=== PATIENT | male | born 1970 | race Caucasian/White ===

== ENCOUNTER → 2018-10-21 | Outpatient (CLI) | payer SELFPAY ==
--- NOTE | 2018-10-21 14:23 | Diagnostic Imaging Report ---
PROCEDURE: MRI right joint lower extremity without contrast. TECHNIQUE: Multiplanar, multisequence non contrast-enhanced MRI of the right lower extremity was accomplished. INDICATION: Right knee pain. COMPARISON: None FINDINGS: No acute fracture is seen in the right knee. There is mild bone marrow edema at the peripheral aspect of the medial tibial plateau and medial femoral condyle. Mild subchondral bone marrow edema is seen at the posterolateral tibial plateau. There is a minimal right knee joint effusion with a small Agosto's cyst present. The articular cartilage in the patellofemoral compartment appears intact. There is mild thinning and heterogeneity of the articular cartilage in the medial and lateral compartments, with small fissures bilaterally and a small full-thickness defect in the posterior lateral tibial plateau. There is significant motion artifact, however no discrete tear is seen of the lateral meniscus. The medial meniscus demonstrates complex tearing, predominantly horizontal, at the posterior horn and body. The anterior and posterior cruciate ligaments are intact. The medial collateral ligament demonstrates no discrete tear. There is adjacent soft tissue edema which is likely due to the underlying meniscal pathology. The lateral collateral ligamentous complex appears intact. The extensor mechanism is intact. The medial and lateral retinacula appear intact. There are postsurgical changes seen at Hoffa's fat pad. IMPRESSION: 1. Complex tearing of the posterior horn and body of the medial meniscus. 2. Mild tricompartmental degenerative changes and cartilage loss. 3. Small right knee joint effusion with a small Agosto's cyst. 4. Mild edema adjacent to the medial collateral ligament may represent a low-grade sprain or be reactive to the underlying meniscal pathology. Dictated by: Dictated on workstation # [id number]
== END ==
LOC: RAD 13:05
PROVIDERS: ATTEND Nurse Practitioner Family
DX: S83.231A Complex tear of medial meniscus, current injury, right knee, initial encounter (principal); M17.11 Unilateral primary osteoarthritis, right knee; M71.21 Synovial cyst of popliteal space [Baker], right knee
CPT/HCPCS: 73721